=== PATIENT | male | born 1995 | race Two or more races ===

== ENCOUNTER 2016-10-08 12:31 | Emergency (ER) | payer SELFPAY ==
[2016-10-08 12:38] VITALS: BP 126/76; BMI 25.0
--- NOTE | 2016-10-08 13:14 | DR.EXTPAIN ---
HPI - Time seen Time seen: 13:08 - PCP Primary Care Physician: DAMIR - HPI Comment HPI Comment: PAIN IN LEFT KNEE. DIFFICULTY WALKING DUE TO PAIN. - Complaint/Symptoms Chief Complaint Doctor Comments: INJURY LEFT KNEE TIMES 3 DAYS WHILE PLAYING SOCCER. Chief Complaint:: PT STATES " HE HURT HIS LEFT LEG A FEW DAYS AGO WHILE PLAYING SOCCER AND THERE IS PAIN WHEN HE WALKS" - Nurses notes reviewed Nurses Notes Review: Yes - Source History Provided: Patient - Mode of arrival Mode of Arrival: Ambulatory - Timing Onset of Chief Complaint: 10/05/16 - Context History of: None - Associated signs and symptoms Associated Signs and Symptoms: Pain, Swelling PMH - PMH Past Medical History: No Past Surgical History: No - Family History History of Family Medical Conditions: No - Social History Does patient currently use any type of tobacco product: No Have you used tobacco products in the last 12 months: No Type of Tobacco Use: None Does any household member use tobacco: No Alcohol Use: None Do you use any recreational Drugs:: No Lives With: Family Lives Where: Home - infectious screening In the last 2 months have you had wt loss of >10#?: NO Have you had fever, night sweats or hemotysis?: No Have you traveled outside the country in the last 6 months?: No Isolation: Standard ROS - Review of Systems Constitutional: No Symptoms Reported Eyes: No Symptoms Reported ENTM: No Symptoms Reported Respiratoy: No Symptoms Reported Cardiovascular: No Symptoms Reported Gastrointestinal/Abdominal: No Symptoms Reported Genitourinary: No Symptoms Reported Neurological: No Symptoms Reported Musculoskeletal: Left, Knee Integumentary: No Symptoms Reported Hematologic/Lymphatic: No Symptoms Reported Endocrine: No Symptoms Reported All Other Systems: Reviewed and Negative PE - Vital Signs Vitals: Temperature 97.4 F Pulse Rate 80 Respiratory Rate 22 Blood Pressure 126/76 O2 Sat by Pulse Oximetry 97 - General Limitations: No Limitations General Appearance: Alert - Head Head Exam: Normal Inspection - Eyes Eye exam: Normal Appearance - ENT ENT Exam: Normal External Ear Exam - Neck Neck Exam: Trachea Midline - Chest Chest Inspection: Symmetric Chest Wall Rise - Respiratory Respiratory Exam: Normal Lung Sounds Bilat Respiratory Exam: Bilateral Clear to Auscultation - Cardiovascular Cardiovascular Exam: Regular Rate, Normal Rhythm, Normal Heart Sounds - Abdominal Exam Abdominal Exam: Normal Inspection - Extremities Extremities Exam: Tenderness (LEFT KNEE TENDER. DECREASE ROM.), Joint Swelling ( LEFT KNEE) - Lower Extremities Neurovascular/Tendon Exam: Normal Capillary Refill Gait Exam: Observed & Limited by Pain - Back Back Exam: Normal Inspection - Neurological Neurological Exam: Alert, Oriented X3 - Skin Skin Exam: Erythema MDM - Differential Diagnosis Differential Diagnosis: Contusion, Fracture, Sprain Course - Treatment Treatment: SEE ORDERS. FAMILY INTERPRETED FOR PATIENT FROM [facility]. - Education/Counseling Education/Counseling: Patient, Family, Education Educated On: Diagnosis, Needs for Follow Up ROR - XRAY XRAY Interpreted by: Radiologist XRAY Findings: REPORT DISCUSS WITH PATIENT. - Diagnosis Discharge Problem: Left knee sprain Qualifiers: Encounter type: sequela Involved ligament of knee: unspecified ligament Qualified Code(s): S83.92XS - Sprain of unspecified site of left knee, sequela - Discharge Plan Disposition: 01 HOME, SELF-CARE Condition: Stable Prescriptions: Ibuprofen [MOTRIN TAB 600 MG *] 600 mg PO TID PRN #20 tab PRN Reason: Pain/Inflammation - Follow ups/Referrals Follow ups/Referrals: KRIS BENNETT [STAFF PHYSICIAN] - 2 days NFD,None [Primary Care Provider] - 2 days - Instructions Instructions: Knee Sprain Additional Instructions: RETURN TO ED IF WORSE.
--- NOTE | 2016-10-08 13:47 | RAD ---
Left knee, three views Indication: Knee pain after soccer injury Findings: No cortical lucency or malalignment identified. The joint spaces are intact. There is no e vidence for large joint effusion, although the lateral view is suboptimal. Impression: Negative exam. Reported By:
== END 2016-10-08 14:22 | disposition home or self-care (01) ==
LOC: ER 12:44
DX: S83.92XS Sprain of unspecified site of left knee, sequela (principal); Y93.66 Activity, soccer; Y92.322 Soccer field as the place of occurrence of the external cause
CPT/HCPCS: 73564; 99282